=== PATIENT | male | born 1975 | race Hispanic/Latino ===

== ENCOUNTER → 2018-05-18 | Day surgery (SDC) | payer BC ==
[2018-05-15 10:43] LABS: BASOPHILS # (AUTO) 0.1 (0.0-0.1); EOSINOPHILS # (AUTO) 0.1 (0.0-0.4); EOSINOPHILS % 1.6 % (0.0-6.0); HEMATOCRIT 42.6 % (38.2-49.6); HEMOGLOBIN 14.3 g/dL (14.0-18.0); LYMPHOCYTES # (AUTO) 1.4 (1.0-3.2); LYMPHOCYTES % 26.9 % (18.0-39.1); MEAN CORPUSCULAR HEMOGLOBIN 29.5 pg (28-32); MEAN CORPUSCULAR HGB CONC 33.6 g/dL (31-35); MONOCYTES # (AUTO) 0.5 (0.2-0.8); MONOCYTES % 9.1 % (4.4-11.3); NEUTROPHILS # (AUTO) 3.1 (2.1-6.9); PLATELET COUNT 192 x10e3/uL (140-360); RED BLOOD COUNT 4.84 x10e6/uL (4.3-5.7); RED CELL DISTRIBUTION WIDTH 13.3 % (11.7-14.4)
[~2018-05-18] MED LIST: ANTIVERT12.5 MG PO; BACITRACIN 50,000 UNIT VIAL ONE; BUPIVACAINE 0.25% 30ML SDV INJ ONE; CEFAZOLIN SOD 2 GM/D5W 50ML 50 ML IV ONE; CLARITIN-D 241 EACH PO; DEXAMETHASONE SOD PHOS INJ 4 MG/ML VIAL ONE; FENTANYL CITRATE/PF 100MCG/2 ML INJ ONE; LIDOCAINE HCL 2% LOCAL INJ 5 ML SDV VIAL INJ ONE; MIDAZOLAM HCL 2 MG/2 ML VIAL ONE; NEXIUM OTC PO; ONDANSETRON HCL INJ 2MG/ML 2ML 2 MG/ML VIAL ONE; PROPOFOL IV EMULSION 10 MG/ML 20 ML VIAL ONE; ROCURONIUM BROMIDE 10 MG/ML 5ML VIAL ONE; SEVOFLURANE INHAL SOLN 250 ML PEN BTL ONE; SINGULAIR10 MG PO; XYZAL2.5 MG/5 M PO; XYZAL5 MG PO; ZOFRAN ODT4 MG PO
--- NOTE | 2018-05-18 14:20 | Operative Report ---
DATE OF PROCEDURE: May 18, 2018 PREOPERATIVE DIAGNOSIS: Umbilical hernia. POSTOPERATIVE DIAGNOSIS: Umbilical hernia. PROCEDURE: Repair of umbilical hernia. RETORT SETTER: None. ANESTHESIA: General. INDICATIONS AND FINDINGS: Patient is a 43-year-old male who presented with complaints of a bulge in his umbilicus that has increased in size. At surgery, the patient was found to have an umbilical hernia. The herniated mass was about 2 cm in diameter. The fascial defect was about 6 mm in diameter. TECHNIQUE: After adequate general anesthesia, with the patient in the supine position, the abdomen was prepped and draped in sterile fashion with ChloraPrep solution. Transverse incision was made inferior to the umbilicus. It was carried down through subcutaneous tissue. Umbilicus was dissected free from the herniated mass. The herniated mass was dissected free down to the fascia and freed from the fascia throughout the circumference of the hernia defect. The herniated mass was some omentum as well as preperitoneal fat. This was all reduced beneath the fascia. The hernia defect was about 6 mm in diameter. This was repaired directly with interrupted figure-of-8 sutures of #0 Prolene. Once the hernia was repaired, the wound was inspected for hemostasis, which was seen to be adequate. The wound was then infiltrated with 1/4 percent Marcaine. The umbilicus was sutured to the fascia using 3-0 Vicryl. Subcutaneous tissue was closed with a running suture of 3-0 Vicryl. Skin was closed with a running subcuticular suture of 4-0 Vicryl. Dermabond and sterile dressing were applied. Patient tolerated the procedure well. Estimated blood loss was less than 5 mL. There were no complications. All counts were correct. The patient was taken to the recovery room in satisfactory condition. Job#: [id number]
[2018-05-18 14:40] VITALS: BP 125/83
== END | disposition home or self-care (01) ==
LOC: OR 09:47
PROVIDERS: ATTEND Surgery
DX: K42.9 Umbilical hernia without obstruction or gangrene (principal); K21.9 Gastro-esophageal reflux disease without esophagitis; K44.9 Diaphragmatic hernia without obstruction or gangrene; T78.40XA Allergy, unspecified, initial encounter; X58.XXXA Exposure to other specified factors, initial encounter; Z01.810 Encounter for preprocedural cardiovascular examination; Z01.812 Encounter for preprocedural laboratory examination
CPT/HCPCS: 36415; 49585; 85025; 93005; J0690; J1100; J2001; J2250; J2405; J2704